=== PATIENT | male | born 1970 | race Hispanic/Latino ===

== ENCOUNTER 2017-08-04 22:13 | Emergency (ER) | payer BC, OTHER ==
[2017-08-04 22:31] VITALS: BP 144/83; PULSE 86; RESP 18; TEMP 97.6; O2SAT 97
[2017-08-04] MEDS ORDERED: BENZOIN 60 ML TINCTURE TP STA (22:39)
--- NOTE | 2017-08-04 22:42 | ED PDOC ---
HPI: Wound Care - HPI Time Seen by Provider: 08/04/17 22:39 Chief Complaint (Nursing): Abnormal Skin Integrity Chief Complaint (Provider): facial lacerations History Per: Patient Additional Complaint(s): 46-year-old male presents with superficial lacerations to face status post injury when he walked into a door. Patient did not sustain loss of consciousness. He has superficial laceration to nasal bridge an additional laceration to middle of the forehead. No active bleeding noted. Patient is not sure of last tetanus. No LOC PMD: [place] Past Medical History Reviewed: Historical Data, Nursing Documentation, Vital Signs Vital Signs: Last Vital Signs Temp 97.6 F 08/04/17 22:17 Pulse 86 08/04/17 22:17 Resp 18 08/04/17 22:17 BP 144/83 08/04/17 22:17 Pulse Ox 97 08/04/17 22:17 - Medical History PMH: HTN - Family History Family History: States: No Known Family Hx - Living Arrangements Living Arrangements: With Family - Social History Current smoker - smoking cessation education provided: No Alcohol: None Drugs: Denies - Immunization History Hx Tetanus Toxoid Vaccination: No (not sure of last booster) - Allergies Allergies/Adverse Reactions: Allergies Allergy/AdvReac Type Severity Reaction Status Date / Time No Known Allergies Allergy Verified 08/04/17 22:17 Review of Systems ROS Statement: Except As Marked, All Systems Reviewed And Found Negative Skin: Positive for: Other (facial lacerations) Neurological: Positive for: Other (no LOC) Physical Exam - Reviewed Nursing Documentation Reviewed: Yes Vital Signs Reviewed: Yes - Physical Exam Appears: Positive for: Well, Non-toxic, No Acute Distress Skin: Negative for: Rash Eye Exam: Positive for: Normal appearance ENT: Positive for: Other (0.5 cm very superficial laceration noted to the mid forehead, no active bleeding, additional 1 cm laceration noted to proximal nasal bridge with no active bleeding, also very superficial) Neurologic/Psych: Positive for: Alert, Oriented - ECG O2 Sat by Pulse Oximetry: 97 Pulse Ox Interpretation: Normal Medical Decision Making Medical Decision Makin46 year old with superficial facial lacerations Plan: Patient declined tetanus, states he prefers to check with primary doctor to see if he is due for a booster. Forehead laceration is extremely superficial, no acute intervention noted. Procedure Note: Nasal laceration cleansed with normal saline, tincture of benzoin applied to wound edges and Steri-Strips were used to approximate the wound, good wound approximation was achieved. Procedure tolerated well by patient with no complications. Patient was given wound care instructions and was advised to allow steri-strips to fall off on their own. Disposition - Clinical Impression Clinical Impression: Facial laceration - Patient ED Disposition Is Patient to be Admitted: No Counseled Patient/Family Regarding: Diagnosis, Need For Followup - Disposition Referrals: [facility] [Provider Group] Disposition: Routine/Home Disposition Time: 23:05 Condition: STABLE Additional Instructions: Keep wounds clean and dry. Allow Steri-Strips to fall off on their own. Tylenol or Advil for pain as needed. Follow up with primary doctor to determine tetanus status and obtain booster if necessary. Instructions: Laceration Repair Forms: [employer] ([place])
[2017-08-04] MEDS ORDERED: Benzoin Compund Tincture 30 ML TP ONE (22:44)
== END 2017-08-04 23:12 | disposition home or self-care (01) ==
LOC: H.ER 22:13
DX: S01.21XA Laceration without foreign body of nose, initial encounter (principal); W22.8XXA Striking against or struck by other objects, initial encounter; Y92.89 Other specified places as the place of occurrence of the external cause; I10 Essential (primary) hypertension